=== PATIENT | female | born 1935 | race Caucasian/White ===

== ENCOUNTER 2017-03-22 07:46 | Emergency (ER) | payer MEDICARE, BC ==
[2017-03-22 08:34] LABS: BASO % 0.7 % (0-6); EOS % 2.5 % (0-6); GRAN % 71.2 % (47-80); HEMATOCRIT 45.6 % (35.0-47.0); HEMOGLOBIN 14.4 gm/dl (11.6-16.0); LYMPH % 18.1 % (16-45); MEAN CELL VOLUME 91.9 fl (81-97); MEAN CORPUSCULAR HGB CONC 31.6 g/dl (32-36); MEAN PLATELET VOLUME 8.8 fl (7.4-10.4); MONO % 7.5 % (0-9); PLATELET COUNT 312 K/uL (130-400); RED BLOOD COUNT 4.96 M/uL (3.80-5.40); RED CELL DISTRIBUTION WIDTH 13.9 % (11.5-14.5); WHITE BLOOD COUNT W/O DIFF 5.6 K/uL (4.2-12.2)
--- NOTE | 2017-03-22 08:45 | Emergency Department Record ---
History of Present Illness - General Chief complaint: GI Bleed Stated complaint: BLOOD IN STOOL THIS AM Time Seen by Provider: 03/22/17 08:15 Source: Patient Mode of Arrival: Ambulatory Limitations: No limitations - History of Present Illness Initial comments: pt had a normal nontender bowel movement this morning that was followed with bright red blood. pt was not constipated and had no pain. pt has had sm amts of bleeding in the past but never a large amt like this. pt has a hx of polyps and gets colonoscopy every 3 yrs and is due now for one. complaint: Gross hematochezia Onset/Timin -: Hour(s) Radiation: None Quality: Painless Improves with: None Worsens with: None Context: Hemorrhoids Associated Symptoms: Denies other symptoms Treatments Prior to Arrival: None - Related Data Home Medications Medication Instructions Recorded Confirmed Last Taken No Home Med [NO HOME MEDS] 03/22/17 03/22/17 Unknown Allergies Allergy/AdvReac Type Severity Reaction Status Date / Time some antibiotic can't Allergy DIARRHEA Uncoded 12/19/14 09:06 remember name Travel Screening - Travel/Exposure Within Last 30 Days Have you traveled within the last 30 days?: No Review of Systems Reviewed: No additional complaints except as noted below Constitutional: Reports: As per HPI. Denies: Chills, Fever, Malaise, Night sweats, Weakness, Weight change Eyes: Reports: As per HPI. Denies: Eye discharge, Eye pain, Photophobia, Vision change ENT: Reports: As per HPI. Denies: Congestion, Dental pain, Ear pain, Epistaxis , Hearing loss, Throat pain Respiratory: Reports: As per HPI. Denies: Cough, Dyspnea, Hemoptysis, Stridor, Wheezes Cardiovascular: Reports: As per HPI. Denies: Arrhythmia, Chest pain, Dyspnea on exertion, Edema, Murmurs, Orthopnea, Palpitations, Paroxysmal nocturnal dyspnea, Rheumatic Fever, Syncope Endocrine: Reports: As per HPI. Denies: Fatigue, Heat or cold intolerance, Polydipsia, Polyuria Gastrointestinal: Reports: As per HPI. Denies: Abdominal pain, Constipation, Diarrhea, Hematemesis, Hematochezia, Melena, Nausea, Vomiting Genitourinary: Reports: As per HPI. Denies: Abnormal menses, Discharge, Dyspareunia, Dysuria, Frequency, Hematuria, Incontinence, Retention, Urgency Musculoskeletal: Reports: As per HPI. Denies: Arthralgia, Back pain, Gout, Joint swelling, Myalgia, Neck pain Skin: Reports: As per HPI. Denies: Bruising, Change in color, Change in hair/ nails, Lesions, Pruritus, Rash Neurological: Reports: As per HPI. Denies: Abnormal gait, Confusion, Headache, Numbness, Paresthesias, Seizure, Tingling, Tremors, Vertigo, Weakness Psychiatric: Reports: As per HPI. Denies: Anxiety, Auditory hallucinations, Depression, Homicidal thoughts, Suicidal thoughts, Visual hallucinations Hematological/Lymphatic: Reports: As per HPI. Denies: Anemia, Blood Clots, Easy bleeding, Easy bruising, Swollen glands Past Medical History - SOCIAL HISTORY Smoking Status: Never smoker Alcohol Use: None Drug Use: None - RESPIRATORY Hx Respiratory Disorders: No - CARDIOVASCULAR Hx Cardio Disorders: No - NEURO Hx Neuro Disorders: No - GI Hx GI Disorders: No - Hx Genitourinary Disorders: No - ENDOCRINE Hx Endocrine Disorders: No - MUSCULOSKELETAL Hx Musculoskeletal Disorders: No - PSYCH Hx Psych Problems: No - HEMATOLOGY/ONCOLOGY Hx Hematology/Oncology Disorders: No Family Medical History Any Significant Family History?: Yes Hx Cancer: Brother/Sister Hx Diabetes: Mother Physical Exam - General General Appearance: Alert, Oriented x3, Cooperative, Mild distress - Head Head exam: Normal inspection - Eye Eye exam: Normal appearance, PERRL, EOMI Pupils: Normal accommodation - ENT ENT exam: Normal exam, Mucous membranes moist, Normal external ear exam, Normal orophraynx, TM's normal bilaterally Ear exam: Normal external inspection. negative: External canal tenderness Nasal Exam: Normal inspection. negative: Discharge, Sinus tenderness Mouth exam: Normal external inspection, Tongue normal Teeth exam: Normal inspection. negative: Dental caries Throat exam: Normal inspection. negative: Tonsillar erythema, Tonsillar exudate - Neck Neck exam: Normal inspection, Full ROM. negative: Tenderness - Respiratory Respiratory exam: Normal lung sounds bilaterally. negative: Respiratory distress - Cardiovascular Cardiovascular Exam: Regular rate, Normal rhythm, Normal heart sounds - GI/Abdominal GI/Abdominal exam: Soft, Normal bowel sounds. negative: Tenderness - Rectal Rectal exam: Heme (-) stool, Mass - exam: Deferred - Extremities Extremities exam: Normal inspection, Full ROM, Normal capillary refill. negative: Tenderness - Back Back exam: Reports: Normal inspection, Full ROM. Denies: Muscle spasm, Rash noted, Tenderness - Neurological Neurological exam: Alert, CN II-XII intact, Normal gait, Oriented X3 - Psychiatric Psychiatric exam: Normal affect, Normal mood - Skin Skin exam: Dry, Intact, Normal color, Warm Course Vital Signs 03/22/17 07:53 Temperature 97.9 F Pulse Rate 99 H Respiratory 20 Rate Blood Pressure 176/99 Pulse Ox 97 - Reevaluation(s) Reevaluation #1: 03/22/17 12:13 d/w dr wiseman who will see pt on saturday. Medical Decision Making - Lab Data Result diagrams: 03/22/17 08:25 03/22/17 08:25 Lab Results 03/22/17 Range/Units 08:25 WBC 5.6 (4.2-12.2) K/uL RBC 4.96 (3.80-5.40) M/uL Hgb 14.4 (11.6-16.0) gm/dl Hct 45.6 (35.0-47.0) % MCV 91.9 (81-97) fl MCH 29.0 (27-33) pg MCHC 31.6 L (32-36) g/dl RDW 13.9 (11.5-14.5) % Plt Count 312 (130-400) K/uL MPV 8.8 (7.4-10.4) fl Gran % 71.2 (47-80) % Lymphocytes % 18.1 (16-45) % Monocytes % 7.5 (0-9) % Eosinophils % 2.5 (0-6) % Basophils % 0.7 (0-6) % Disposition Disposition: Discharge Clinical Impression: Rectal bleeding Disposition: Home, Self-Care Condition: (1) Good Instructions: Rectal Bleeding (ED) Additional Instructions: follow up with dr wiseman on saturday in specialty clinic, 03/25. you will be called with a time. return sooner if worse Referrals: JACQUELINE WISEMAN [DOCTOR OF OSTEOPATH] - [facility] Specialty Clinics [Provider Group] Forms: Patient Portal Access
[2017-03-22 08:47] LABS: ALB/GLOB RATIO 1.4 (1.1-1.8); ALBUMIN 4.2 gm/dL (3.5-5.0); ALKALINE PHOSPHATASE 71 U/L (38-126); ALT/SGPT 31 U/L (9-52); ANION GAP 8.8 (7-16); AST/SGOT 25 U/L (14-36); BLOOD UREA NITROGEN 14 mg/dL (7-17); CARBON DIOXIDE 24.2 mmol/L (22-30); CREATININE 0.8 mg/dL (0.52-1.04); EST GLOMERULAR FILTRATION RATE > 60 ml/min; GLUCOSE,RANDOM 95 mg/dL (70-110); TOTAL PROTEIN 7.3 gm/dL (6.3-8.2)
== END 2017-03-22 12:40 | disposition home or self-care (01) ==
LOC: ER 07:46
DX: K92.1 Melena (principal)
CPT/HCPCS: 99283; 99284; 85025; 80053; 74177; Q9967

== ENCOUNTER 2017-03-28 09:11 | Day surgery (SDC) | payer MEDICARE, BC ==
[2017-03-28] MEDS ORDERED: TROPICAMIDE 1% 15ML BTL OP ONE (11:24)
[2017-03-28] MEDS ORDERED: NEOMYCIN/POLY./DEXAM OPTH OINT OPTH ONE (11:24)
[2017-03-28] MEDS ORDERED: PHENYLEPHRINE HCL 10% OPTH BTL OPTH ONE (11:24)
[2017-03-28] MEDS ORDERED: EPINEPHRINE 1 MG/ML AMPUL SQ ONE (11:24)
[2017-03-28] MEDS ORDERED: DICLOFENAC SODIUM 2.5 ML DROPS OPTH ONE (11:24)
[2017-03-28] MEDS ORDERED: LIDOCAINE 2% MDV (20MG/ML) 20ML VIAL IV ONE ×2 (11:24→13:00)
[2017-03-28] MEDS ORDERED: TETRACAINE HCL 0.5% 15 ML OPTH BTL OPTH ONE (11:24)
[2017-03-28] MEDS ORDERED: TOBRAMYCIN 0.3% OPTH DROP 5 ML BTL OPTH ONE (11:24)
[2017-03-28] MEDS ORDERED: PREDNISOLONE ACETATE 1% OPTH 10ML BOTTLE OPTH ONE (11:24)
[2017-03-28] MEDS ORDERED: PROPOFOL 10 MG/ML VIAL IV ONE (13:00)
--- NOTE | 2017-03-28 15:59 | OP NOTE CHAMES ---
DATE OF PROCEDURE: 03/28/17 PREOPERATIVE DIAGNOSIS: Nuclear sclerotic cataract, left eye. POSTOPERATIVE DIAGNOSIS: Nuclear sclerotic cataract, left eye. OPERATION: Phacoemulsification of cataractous lens with implantation of intraocular lens. LENS IMPLANT USED: Mei Model PCB00 + 30.0 diopters. COMPLICATIONS: None. PROCEDURE IN DETAIL: Following a retrobulbar and facial block, the patient was prepped and draped in the usual fashion for eye surgery. A lid speculum was placed in the left eye after which a 2.4 mm tunnel wound was placed at the temporal limbus and dissected into clear cornea. A paracentesis was placed at 2 oclock hours to the left and right of the initial incision and the chamber deepened with Viscoelastic. The keratome was then used to enter the anterior chamber after which the continuous circular capsulorrhexis was accomplished without difficulty using a bent needle and a Utrata forceps. Hydrodissection and hydrodelineation of the lens was performed after which the nucleus of the lens was removed using the Phaco handpiece in the [id number] technique. The residual cortical material was irrigated and aspirated from the eye after which the bag and chamber were re-examined. The bag was re-inflated with Viscoelastic and the intraocular lens injected into the capsular bag where it centered well. The Viscoelastic was then copiously irrigated and aspirated from the eye after which the temporal tunnel wound and paracentesis were hydrated and the wounds were examined. They were noted to be watertight. The lid speculum was removed from the eye and the eye patched and shielded. The patient was transferred to the recovery room in satisfactory condition and given an appointment to be reexamined in the clinic later today or as directed by Dr. Serna. Geremias Serna M.D. Date & Time JOB NUMBER: [id number] [facility] [place]
== END 2017-03-28 11:30 | disposition home or self-care (01) ==
LOC: SUR 09:11
PROVIDERS: ATTEND Ophthalmology
DX: H25.12 Age-related nuclear cataract, left eye (principal)
CPT/HCPCS: J0171

== ENCOUNTER 2017-04-11 09:07 | Day surgery (SDC) | payer MEDICARE, BC ==
[2017-04-11] MEDS ORDERED: PROPOFOL 10 MG/ML VIAL IV ONE (14:00)
[2017-04-11] MEDS ORDERED: LIDOCAINE 2% MDV (20MG/ML) 20ML VIAL IV ONE ×2 (14:00→14:02)
[2017-04-11] MEDS ORDERED: PREDNISOLONE ACETATE 1% OPTH 10ML BOTTLE OPTH ONE (14:02)
[2017-04-11] MEDS ORDERED: TETRACAINE HCL 0.5% 15 ML OPTH BTL OPTH ONE (14:02)
[2017-04-11] MEDS ORDERED: EPINEPHRINE 1 MG/ML AMPUL SQ ONE (14:02)
[2017-04-11] MEDS ORDERED: PHENYLEPHRINE HCL 2.5% OPTH 2ML BTL OP ONE (14:02)
[2017-04-11] MEDS ORDERED: TOBRAMYCIN 0.3% OPTH DROP 5 ML BTL OPTH ONE (14:02)
[2017-04-11] MEDS ORDERED: DICLOFENAC SODIUM 2.5 ML DROPS OPTH ONE (14:02)
[2017-04-11] MEDS ORDERED: NEOMYCIN/POLYMYXIN B SULF/HC 10ML BTL OT ONE (14:02)
[2017-04-11] MEDS ORDERED: TROPICAMIDE 1% 15ML BTL OP ONE (14:02)
--- NOTE | 2017-04-18 12:48 | Operative Note ---
DATE OF PROCEDURE: 04/11/2017 PREOPERATIVE DIAGNOSIS: Nuclear sclerotic cataract with astigmatism, Right eye. POSTOPERATIVE DIAGNOSIS: Nuclear sclerotic cataract with astigmatism, Right eye. OPERATION: Phacoemulsification of cataractous lens with implantation of toric intraocular lens. LENS IMPLANT USED: Mei Model [id number] + 23.0 diopters. COMPLICATIONS: None. PROCEDURE IN DETAIL: The patient was given reference benjie at the 0 and 180- degree position prior to being blocked in the usual fashion with the retrobulbar block in the right eye. The patient was then prepped and draped in the usual fashion and a lid speculum placed in the right eye. At this point, the corneal marker was used to create markings on the cornea at 77 degrees after which, a scleral tunnel wound was placed at the temporal limbus of 2.4 mm cord length. A paracentesis was placed 2 hours to the left and right of this and the chamber deepened with Viscoelastic. The keratome was used to enter through the scleral tunnel wound after which the continuous circular capsulorrhexis was accomplished without difficulty. Hydrodissection of the lens was performed and the nucleus of the lens was removed in a divide and conquer fashion. The residual cortical material was irrigated and aspirated from the eye and the bag and chamber were then reinflated with Viscoelastic. The intraocular lens was placed into the capsular bag and oriented to a position 10 degrees shorter the intended final access. The residual Viscoelastic was removed from the eye and the eye was then reinflated and the intraocular lens dialed into position at 77 degrees. The wound was noted to be water-tight to direct encounter pressure. The lid speculum was removed and the eye was patched and shielded to be re-examined later today or as directed by Dr. Senra. Geremias Serna M.D. Date & Time JOB NUMBER: [id number] MTDD
== END 2017-04-11 11:50 | disposition home or self-care (01) ==
LOC: SUR 09:07
PROVIDERS: ATTEND Ophthalmology
DX: H25.11 Age-related nuclear cataract, right eye (principal); H52.201 Unspecified astigmatism, right eye
CPT/HCPCS: J0171

== ENCOUNTER 2017-05-13 09:12 | Day surgery (SDC) | payer MEDICARE, BC ==
[2017-05-13] MEDS ORDERED: PROPOFOL 10 MG/ML VIAL IV ONE (16:12)
[2017-05-13] MEDS ORDERED: MIDAZOLAM HCL 2MG/2ML VIAL IV ONE (16:12)
[2017-05-13] MEDS ORDERED: LIDOCAINE 2% MDV (20MG/ML) 20ML VIAL IV ONE (16:12)
--- NOTE | 2017-05-20 11:28 | Operative Note ---
DATE OF SURGERY: 05/13/2017 Referring Physician: Peter Westbrook D.O. PREOPERATIVE DIAGNOSIS: See below. POSTOPERATIVE DIAGNOSIS: See below OPERATION: COLONOSCOPY to the cecum with cold biopsy, forceps polypectomy x1. Indication: History of colon polyps in the past, history of recent rectal bleeding, presumably due to hemorrhoids. Rule out additional pathology, surveillance colonoscopy for abnormal polyps. Anesthesia: Intravenous sedation was administered by Department of Anesthesiology and included Diprivan titrated to effect. PROCEDURE: Following informed consent from this alert individual, including a discussion of the risks and benefits of the procedure and an opportunity for the patient to ask questions, the patient was placed in the left lateral decubitus position. A digital rectal examination was performed. No abnormalities were noted. Following this, an Olympus HCS260 video colonoscope was inserted into the rectum without resistance. The rectal mucosa had a normal appearance, with normal folds and distensibility. The colonoscope was advanced up to through the colon to the level of the cecum without much difficulty. Throughout the remainder of the bowel, the mucosa appeared normal, the folds are normal, and the bowel is fairly distensible. Extensive diverticulosis was noted in the left colon. Cecum was well defined by noting the appendiceal orifice and ileocecal valve. Reflexion accomplished in the cecum was endoscopically unremarkable. Colon preparation was good. From the cecum, the colonoscope was then withdrawn. No additional changes were appreciated until the rectum was reached. There was a diminutive 3 mm polyp noted in the rectum, removed with biopsy forceps. Retroflexion of the rectum revealed moderate-sized internal hemorrhoids. The endoscope was straightened and removed. The patient tolerated the procedure well and was returned to the Recovery Area in stable condition. IMPRESSION: 1. Left colonic diverticulosis. 2. Three millimeter rectal polyp removed with biopsy forceps. 3. Moderate-sized internal hemorrhoids. RECOMMENDATIONS: Patient was advised further recommendations may be forthcoming pending results of pathology obtained today. Follow up will be with Dr. Jim Westbrook. If the bleeding should recur, she could utilize a hemorrhoidal cream as needed. As always, thank you for allowing me to participate in the care of your patient. CC: Peter Westbrook D.O. YFN
== END 2017-05-13 11:50 | disposition home or self-care (01) ==
LOC: HOP 09:12
PROVIDERS: ATTEND Internal Medicine Gastroenterology
DX: Z12.11 Encounter for screening for malignant neoplasm of colon (principal); K62.1 Rectal polyp; K64.8 Other hemorrhoids; K57.30 Diverticulosis of large intestine without perforation or abscess without bleeding